=== PATIENT | female | born 1960 | race Caucasian/White ===

== ENCOUNTER 2021-01-06 12:29 | Day surgery (SDC) | payer MEDICARE, OTHER ==
[2021-01-03 10:55] VITALS: BMI 26.6
[~2021-01-06 12:29] MED LIST: LACTATED RINGERS 1,000 ML IV SCH
[2021-01-06 12:48] VITALS: TEMP 98.6
[2021-01-06] MEDS ORDERED: PROPOFOL 10 MG/ML 20 ML VIAL IV ONE (13:41)
[2021-01-06] MEDS ORDERED: LIDOCAINE 1% INJ 10MG/ML (20 ML MDV) ONE (13:41)
--- NOTE | 2021-01-06 13:47 | P.GSHP ---
History of Present Illness H&P Date: 01/06/21 Chief Complaint: Anemia 52-year-old female with history of anemia. Patient presents today for EGD and colonoscopy. Past Medical History Past Medical History: Asthma, Blood Disorder, Fibromyalgia, GERD/Reflux, Hyperlipidemia, Hypertension, Liver Disease, Osteoarthritis (OA) Additional Past Medical History / Comment(s): "Anemic w/ extremely high ferritin." Fatty liver. Osteoporosis. Wears Lt knee brace. History of Any Multi-Drug Resistant Organisms: None Reported Past Surgical History: Bariatric Surgery, Joint Replacement, Orthopedic Surgery Additional Past Surgical History / Comment(s): Evelyn-n-Y 2000 est. left foot surg. carter cataracts removal. Lt Total knee. ORIF Rt wrist. Past Anesthesia/Blood Transfusion Reactions: No Reported Reaction Smoking Status: Current every day smoker - Past Family History Father Family Medical History: Cancer Additional Family Medical History / Comment(s): Hx Hodgkin's lymphoma x2, then Non-hodgkin's lymphoma. (Maternal Grandmother had colon cancer) Medications and Allergies Home Medications Medication Instructions Recorded Confirmed Type Albuterol Inhaler (Mhu) [Ventolin 1 - 2 puff INHALATION Q6HR PRN 11/13/15 01/03/21 History Hfa Inhaler] DULoxetine HCL [Cymbalta] 30 mg PO TID 11/13/15 01/03/21 History Meloxicam [Mobic] 7.5 mg PO BID 11/13/15 01/03/21 History cloNIDine HCL [Catapres] 0.1 mg PO HS 11/13/15 01/03/21 History Amitriptyline HCl [Elavil] 10 mg PO HS 01/03/21 01/03/21 History Atorvastatin [Lipitor] 20 mg PO DAILY 01/03/21 01/03/21 History Ergocalciferol [Vitamin D2 (1250 1,250 mcg PO WE 01/03/21 01/03/21 History Mcg = 14125 Iu)] Montelukast [Singulair] 10 mg PO HS 01/03/21 01/03/21 History Multivitamins, Thera [Multivitamin 1 tab PO DAILY 01/03/21 01/03/21 History (formulary)] Pantoprazole [Protonix] 40 mg PO DAILY 01/03/21 01/03/21 History traMADol HCL [Ultram] 50 mg PO TID PRN 01/03/21 01/03/21 History Allergies Allergy/AdvReac Type Severity Reaction Status Date / Time iron dextran complex Allergy Anaphylaxis Verified 01/03/21 10:31 ketorolac [From Toradol] Allergy Nausea & Verified 01/03/21 10:31 Vomiting primidone Allergy Unknown Verified 01/03/21 10:31 meperidine HCl [From Demerol] AdvReac Vomiting Verified 01/03/21 10:31 Surgical - Exam Vital Signs Temp Pulse Resp BP Pulse Ox 98.6 F 76 16 114/71 98 01/06/21 12:47 01/06/21 12:47 01/06/21 12:47 01/06/21 12:47 01/06/21 12:47 - General well developed, well nourished, no distress - Eyes PERRL - ENT normal pinna - Neck no masses - Respiratory normal expansion - Cardiovascular Rhythm: regular - Abdomen Abdomen: soft, non tender Assessment and Plan Assessment: Anemia. We'll perform EGD and colonoscopy
[2021-01-06 14:31] VITALS: BP 118/68; PULSE 72; RESP 16
--- NOTE | 2021-01-22 09:43 | P.OP ---
Date of Procedure: 01/06/21 Preoperative Diagnosis: Anemia Postoperative Diagnosis: Status post Evelyn-en-Y gastric bypass No evidence of upper GI bleed Tortuous colon Procedure(s) Performed: EGD Colonoscopy Anesthesia: MAC Surgeon: Ezequiel Dacosta Pathology: other (Stomach) Condition: stable Disposition: PACU Description of Procedure: The patient's placed on the endoscopy table in the lateral position. She received IV sedation. The gastroscope placed oropharynx passed in the esophagus and into the stomach. The patient had a previous Evelyn-en-Y gastric bypass. The scope was then placed through the gastrojejunostomy. The scope was then placed the jejunum. There is no evidence of any obstruction of the jejunum or gastroj ejunostomy. There was no marginal ulcer. The gastric pouch was mildly dilated. Scope was then brought back the GE junction was at 39 cm. The distal esophagus was minimal inflamed and a biopsies was performed. The proximal esophagus appeared normal. Scope withdrawn for patient. Next, digital rectal exam was performed which revealed no. The colonoscope was then placed patient anus. The scope was passed with colon. The colon was very tortuous. The patient had a poor colonic prep. There is large amount liquid stool the colon. The scope could not be advanced to the cecum secondary to t ortuosity valve. This point scope was withdrawn. The right colon, transverse colon, descending colon and sigmoid colon appeared normal however the view was quite limited due to the large amount liquid stool. Scope was brought back the rectum this appeared normal. Scope withdrawn for patient. There was no evidence of any upper or lower GI bleed.
== END 2021-01-06 15:13 | disposition home or self-care (01) ==
LOC: ORWHC2ENDO 12:29
PROVIDERS: ATTEND Surgery
DX: D64.9 Anemia, unspecified (principal); E78.5 Hyperlipidemia, unspecified; F17.200 Nicotine dependence, unspecified, uncomplicated; I10 Essential (primary) hypertension; J45.909 Unspecified asthma, uncomplicated; K21.9 Gastro-esophageal reflux disease without esophagitis; K29.70 Gastritis, unspecified, without bleeding; K76.0 Fatty (change of) liver, not elsewhere classified; M79.7 Fibromyalgia; M81.0 Age-related osteoporosis without current pathological fracture; Z79.1 Long term (current) use of non-steroidal anti-inflammatories (NSAID); Z88.5 Allergy status to narcotic agent
CPT/HCPCS: 45378; 43239; 88305; J2001; J2704